=== PATIENT | female | born 1980 | race African-American/Black ===

== ENCOUNTER → 2019-06-11 07:39 | Outpatient (CLI) | payer MEDICARE, SELFPAY ==
[2019-06-11 08:21] LABS: Basophils % 0.3 % (0.1-2.0); Eosinophils # 0.4 K/mm3 (0.0-0.4); Eosinophils % 3.3 % (0.1-12.0); Hematocrit 37.2 % (37.0-47.0); Hemoglobin 11.6 g/dL (12.2-16.2); Mean Corpuscular HGB Conc 31.2 g/dL (31.8-35.4); Mean Corpuscular Hemoglobin 28.6 pg (27.0-31.2); Mean Corpuscular Volume 91.7 fl (81-99); Mean Platelet Volume 8.4 fl (7.4-10.4); Monocytes # 0.4 K/mm3 (0.1-1.0); Monocytes % 3.9 % (1.7-9.3); Neutrophils # 6.8 K/mm3 (1.8-7.8); Neutrophils % 64.5 % (37.0-80.0); Platelet Count 504 K/mm3 (142-424); Red Blood Count 4.05 M/mm3 (4.20-5.40); Red Cell Distribution Width 13.1 % (11.5-17.5); White Blood Count 10.6 K/mm3 (4.8-10.8)
[2019-06-11 08:55] LABS: Hemoglobin A1C 5.1 % (0.0-7.0)
[2019-06-11 10:54] LABS: Alanine Aminotransferase 15 U/L (12-78); Albumin Level 3.4 gm/dL (3.4-5.0); Albumin/Globulin Ratio 1.1 (1.1-1.8); Alkaline Phosphatase 86 U/L (46-116); Anion Gap 12.3 mEq/L (5-15); Aspartate Amino Transferase 5 U/L (15-37); Bilirubin,Total 0.2 mg/dL (0.2-1.0); Blood Urea Nitrogen 13 mg/dL (7-18); Calcium 9.1 mg/dL (8.5-10.1); Carbon Dioxide 27 mmol/L (21.0-32.0); Chloride 104 mmol/L (98-107); Chol/HDL Ratio 3.2 (1-3.5); Cholesterol 148 mg/dL (140-200); Creatinine,Serum 0.89 mg/dL (0.55-1.02); Estimated Glomerular Filt Rate 72 ml/min (>60); GFR (African American) 87 ML/MIN (>60); Globulin 3.1 gm/dl (1.3-3.2); Glucose 84 mg/dL (74-106); HDL Cholesterol 46 mg/dL (29-89); LDL Cholesterol 81 mg/dL (0-130); Potassium 4.3 mmoL/L (3.5-5.1); Sodium 139 mmol/L (136-145); Thyroid Stimulating Hormone 2.31 uIU/ml (0.358-3.740); Total Protein,Serum 6.5 gm/dL (6.4-8.2); Triglycerides 104 mg/dL (30-200); VLDL Cholesterol 21 mg/dL (0-40)
[2019-06-13 06:29] LABS: Lithium (Eskalith(R)) 1.1 mmol/L (0.6-1.2)
== END ==
DX: F31.9 Bipolar disorder, unspecified (principal); F60.9 Personality disorder, unspecified; Z79.899 Other long term (current) drug therapy; Z51.81 Encounter for therapeutic drug level monitoring
CPT/HCPCS: 36415; 80053; 80061; 80178; 83036; 84443; 85025

== ENCOUNTER 2023-06-22 18:52 | Emergency (ER) | payer MEDICARE, MEDICAID, SELFPAY ==
[2023-06-22 18:52] VITALS: BP 151/105; PULSE 121; RESP 16; TEMP 36.4; O2SAT 100; BMI 31.1
--- NOTE | 2023-06-22 19:01 | PC.NURSE ---
Pt provided with warm blanket. No needs voiced at this time. Call light within reach.
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
[2023-06-22 19:28] VITALS: BP 142/92; PULSE 119; RESP 18; TEMP 36.6; O2SAT 98
== END 2023-06-22 19:32 | disposition home or self-care (01) ==
PROVIDERS: Emergency Provider Emergency Medicine
DX: T74.31XA Adult psychological abuse, confirmed, initial encounter (principal); F31.9 Bipolar disorder, unspecified; F41.9 Anxiety disorder, unspecified; F17.210 Nicotine dependence, cigarettes, uncomplicated
CPT/HCPCS: 99283

== ENCOUNTER 2023-06-26 15:21 | Outpatient (CLI) | payer MEDICARE, SELFPAY ==
[2023-06-26 16:00] LABS: Basophils % 0.4 % (0.1-2.0); Eosinophils # 0.2 K/mm3 (0.0-0.4); Eosinophils % 1.8 % (0.1-12.0); Hematocrit 41.6 % (37.0-47.0); Lymphocytes # 2.4 K/mm3 (0.7-4.5); Mean Corpuscular HGB Conc 31.2 g/dL (31.8-35.4); Mean Corpuscular Hemoglobin 28.7 pg (27.0-31.2); Mean Platelet Volume 7.7 fl (7.4-10.4); Monocytes # 0.5 K/mm3 (0.1-1.0); Monocytes % 5.5 % (1.7-9.3); Neutrophils # 6.2 K/mm3 (1.8-7.8); Neutrophils % 66.3 % (37.0-80.0); Platelet Count 428 K/mm3 (142-424); Red Blood Count 4.52 M/mm3 (4.20-5.40); Red Cell Distribution Width 13.7 % (11.5-17.5); White Blood Count 9.3 K/mm3 (4.8-10.8)
[2023-06-26 16:27] LABS: Alanine Aminotransferase 24 U/L (12-78); Albumin Level 4.3 g/dl (3.5-5.0); Albumin/Globulin Ratio 1.6 (1.1-1.8); Alkaline Phosphatase 108 U/L (38-126); Anion Gap 11.4 mEq/L (5-15); Aspartate Amino Transferase 24 U/L (14-36); Bilirubin,Total 0.3 mg/dl (0.2-1.3); Blood Urea Nitrogen 11 mg/dl (7-17); Carbon Dioxide 26 mmol/L (22.0-30.0); Chloride 106 mmol/L (98-107); Chol/HDL Ratio 3.9 (1-3.5); Cholesterol 190 mg/dl (140-200); Estimated Glomerular Filt Rate 79 ml/min (>60); GFR (African American) 96 ML/MIN (>60); Globulin 2.7 g/dL (1.3-3.2); Glucose 95 mg/dl (74-100); HDL Cholesterol 49 mg/dl (40-60); Potassium 4.4 mmoL/L (3.5-5.1); Sodium 139 mmol/L (136-145); Triglycerides 126 mg/dl (30-150); VLDL Cholesterol 25 mg/dL (0-40)
[2023-06-26 16:38] LABS: Direct LDL Cholesterol 102.44 mg/dL (100-129)
[2023-06-28 09:29] LABS: Hemoglobin A1C 4.9 % (4.0-6.0)
[2023-06-28 09:46] LABS: Thyroid Stimulating Hormone 1.21 uIU/mL (0.465-4.68)
[2023-06-29 08:37] LABS: Lithium (Eskalith(R)) 0.7 mmol/L (0.5-1.2)
== END 2023-06-26 23:59 ==
PROVIDERS: Visit Provider Nurse Practitioner Psychiatric/Mental Health
DX: Z79.899 Other long term (current) drug therapy (principal)
CPT/HCPCS: 36415; 80053; 80061; 85025

== ENCOUNTER 2023-06-26 22:39 | Emergency (ER) | payer MEDICARE, MEDICAID, SELFPAY ==
[2023-06-26 22:43] VITALS: BP 116/85; PULSE 83; RESP 18; TEMP 36.6; O2SAT 98; BMI 30.9
[2023-06-26] MEDS: ACETAMINOPHEN 500MG TAB 1000 MG PO (22:48)
[2023-06-26] MEDS: IBUPROFEN 600 MG TABLET PO (22:49)
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
--- NOTE | 2023-06-26 22:54 | PC.NURSE ---
Pt accepted at [facility], officer Makeda to transport her there after discharge.
[2023-06-26 22:57] VITALS: BP 116/85; PULSE 83; RESP 18; TEMP 36.6; O2SAT 98
--- NOTE | 2023-06-26 23:59 | PC.NURSE ---
Pt accepted by [facility] in [facility], police offer to transport
== END 2023-06-27 00:15 | disposition home or self-care (01) ==
PROVIDERS: Emergency Provider Emergency Medicine
DX: M54.9 Dorsalgia, unspecified (principal); T74.11XA Adult physical abuse, confirmed, initial encounter; T74.31XA Adult psychological abuse, confirmed, initial encounter; Z87.891 Personal history of nicotine dependence
CPT/HCPCS: 36415; 80053; 80061; 80178; 83036; 84443; 85025; 99283; 99285